=== PATIENT | male | born 1980 | race Caucasian/White ===

== ENCOUNTER → 2016-10-06 | Outpatient (CLI) | payer OTHER ==
--- NOTE | 2016-10-06 14:59 | KCIC ---
PROCEDURE Right hand radiographs. HISTORY Chronic right hand pain. Fracture of the 5th metacarpal. Unable to bend thumb. COMPARISON None. FINDINGS PA, lateral, and oblique views of the right hand. Old 5th metacarpal fracture deformity is seen. No acute fracture or dislocation is identified. On lateral view, there is evidence of mild dorsal soft tissue swelling centered at level of the MCP joints. IMPRESSION 1. No acute osseous abnormality identified. 2. Old 5th metacarpal fracture. 3. Mild dorsal soft tissue swelling. Electronically signed by: Nathan Bhakta MD (Oct 06, 2016 14:57:47)
== END | disposition home or self-care (01) ==
LOC: KCIC 14:31
PROVIDERS: ATTEND Family Medicine
DX: M79.89 Other specified soft tissue disorders (principal); Z87.81 Personal history of (healed) traumatic fracture
CPT/HCPCS: 73130

== ENCOUNTER → 2016-12-30 | Outpatient (CLI) | payer OTHER ==
--- NOTE | 2016-12-30 15:39 | KCIC ---
PROCEDURE Left knee, 3. HISTORY Left knee pain x2 weeks. No known injury. COMPARISON None. FINDINGS There is mild medial compartment narrowing. The mineralization is normal. Joint spaces otherwise maintained. No acute fracture is seen. No bony erosion. No obvious joint effusion. Patella in anatomic position. Soft tissues radiographically unremarkable. IMPRESSION No acute bone abnormality. Electronically signed by: Papo Winters MD (December 30, 2016 15:38:24)
== END | disposition home or self-care (01) ==
LOC: KCIC 15:03
PROVIDERS: ATTEND Family Medicine
DX: M25.562 Pain in left knee (principal)
CPT/HCPCS: 73562